=== PATIENT | female | born 1945 | race Caucasian/White ===

== ENCOUNTER → 2021-11-25 08:10 | Outpatient (CLI) | payer MEDICARE, SELFPAY | PROVIDERS: Visit Provider Ophthalmology | DX: Z01.812 Encounter for preprocedural laboratory examination (principal); Z11.52 Encounter for screening for COVID-19 | CPT/HCPCS: C9803; U0003; U0005 ==

== ENCOUNTER 2021-11-26 07:44 | Day surgery (SDC) | payer MEDICARE, SELFPAY ==
[2021-11-21 14:45] VITALS: BMI 31.7
[2021-11-26] VITALS (7 sets, daily range): BP systolic 128–174; BP diastolic 69–95; PULSE 63–71; RESP 18; TEMP 36.1–36.4; O2SAT 95–100
[2021-11-26 09:13] LABS: POC Glucose,Bedside 161 (70-110)
== END 2021-11-26 10:25 | disposition home or self-care (01) ==
LOC: OR 07:47
PROVIDERS: PCP Family Medicine; Visit Provider Ophthalmology
DX: H25.813 Combined forms of age-related cataract, bilateral (principal); H53.149 Visual discomfort, unspecified; H02.831 Dermatochalasis of right upper eyelid; H02.834 Dermatochalasis of left upper eyelid; E11.9 Type 2 diabetes mellitus without complications; I10 Essential (primary) hypertension; Z79.84 Long term (current) use of oral hypoglycemic drugs; Z79.899 Other long term (current) drug therapy; Z88.6 Allergy status to analgesic agent
CPT/HCPCS: 66984; 82962; V2632

== ENCOUNTER → 2021-12-07 08:51 | Outpatient (CLI) | payer MEDICARE, SELFPAY | PROVIDERS: PCP Family Medicine; Visit Provider Ophthalmology | DX: Z01.812 Encounter for preprocedural laboratory examination (principal); Z20.822 Contact with and (suspected) exposure to COVID-19 | CPT/HCPCS: C9803; U0003; U0005 ==

== ENCOUNTER 2021-12-10 08:53 | Day surgery (SDC) | payer MEDICARE, SELFPAY ==
[2021-12-05 13:26] VITALS: BMI 33.6
[2021-12-10 11:06] VITALS: BP 147/61; PULSE 72; RESP 18; TEMP 36.8; O2SAT 97
[2021-12-10 11:18] LABS: POC Glucose,Bedside 131 (70-110)
[2021-12-10 12:08] VITALS: BP 113/61; PULSE 63; RESP 18; O2SAT 97
[2021-12-10 12:13] VITALS: BP 110/60; PULSE 66; RESP 18; O2SAT 100
[2021-12-10 12:18] VITALS: BP 109/55; PULSE 65; RESP 18; O2SAT 100
[2021-12-10 12:23] VITALS: BP 109/61; PULSE 68; RESP 18; O2SAT 100
[2021-12-10 12:28] VITALS: BP 135/74; PULSE 69; RESP 18; TEMP 36.4; O2SAT 94
== END 2021-12-10 12:35 | disposition home or self-care (01) ==
LOC: OR 08:54
PROVIDERS: PCP Family Medicine; Visit Provider Ophthalmology
DX: H25.813 Combined forms of age-related cataract, bilateral (principal); H02.831 Dermatochalasis of right upper eyelid; H02.834 Dermatochalasis of left upper eyelid; E11.9 Type 2 diabetes mellitus without complications; I10 Essential (primary) hypertension; Z88.6 Allergy status to analgesic agent
CPT/HCPCS: 66984; 82962; V2632

== ENCOUNTER 2025-01-24 08:41 | Day surgery (SDC) | payer MEDICARE, SELFPAY ==
[2025-01-17 14:08] VITALS: BMI 32.8
[2025-01-24 09:39] VITALS: BP 130/72; PULSE 69; RESP 18; TEMP 36.2; O2SAT 96
[2025-01-24] MEDS: APRACLONIDINE 0.5% OPHTH SOLN 5ML OP (09:45)
[2025-01-24] MEDS: TETRACAINE 0.5% OPTH SOL 15ML OP (09:45)
[2025-01-24] MEDS: PHENYLEPHRINE 2.5% OPHTH SOLN 2ML OP (09:50)
[2025-01-24] MEDS: TROPICAMIDE 1% OPTH SOLN 2ML OP (09:50)
--- NOTE | 2025-01-24 11:10 | [facility].PROCNOTE ---
[facility] Procedure Note Date: 01/24/25 Time: 11:10 Procedure Note:: Preoperative diagnosis: Posterior Opacification both eyes Postoperative diagnosis: same Operation: YAG Laser Capsulotomy The patient has undergone uneventful cataract surgery in the past. The patient has noticed that the vision has decreased from the previous good level postop. The patient reports that he/she is having trouble reading and/or driving or that glare is giving them a problem. On exam, the patient was found to have visually significant posterior capsular opacification. The treatment options, risks and benefits were explained and the patient elected to have YAG laser capsulotomy in an attempt to improve the vision. Of note, the best corrected visual acuity is in the 23/30 or worse range by refraction or glare testing. The eye was dilated and 1 drop of 0.5% Iopidine applied. YAG laser energy was applied to the posterior capsular bag with good formation of an opening and no complications were noted. The patient will be seen back for follow up in 2 weeks OD 37 pulses/145mj OS 34 pulses/133mj
== END 2025-01-24 10:40 | disposition home or self-care (01) ==
PROVIDERS: PCP Family Medicine; Visit Provider Ophthalmology
PROC: (CPT 66821; principal; 2025-01-24 12:00)
DX: E11.36 Type 2 diabetes mellitus with diabetic cataract (principal); H26.493 Other secondary cataract, bilateral; E78.00 Pure hypercholesterolemia, unspecified; I10 Essential (primary) hypertension; Z96.1 Presence of intraocular lens; Z79.84 Long term (current) use of oral hypoglycemic drugs; Z79.899 Other long term (current) drug therapy; Z97.3 Presence of spectacles and contact lenses; Z98.42 Cataract extraction status, left eye; Z98.41 Cataract extraction status, right eye; Z83.518 Family history of other specified eye disorder; Z88.5 Allergy status to narcotic agent
CPT/HCPCS: 66821